=== PATIENT | female | born 1995 | race Hispanic/Latino ===

== ENCOUNTER 2017-12-24 07:24 | Inpatient (IN) | payer MEDICAID ==
[~2017-12-24] VITALS: Ht 170.2 cm; Wt 98.0 kg
[~2017-12-24 07:24] MED LIST: PREN1TAB80 PO
[2017-12-24] MEDS ORDERED: LACTATED RINGERS 1000ML 1,000 ML IV PRN (07:33)
[2017-12-24] MEDS ORDERED: OXYTOCIN 10 USP UNITS/ML 20 UNIT in LACTATED RINGERS 1000ML 1,000 ML IV SCH (07:45)
[2017-12-24] MEDS ORDERED: OXYTOCIN 10 USP UNITS/ML ONE ×2 (08:16→16:05)
[2017-12-24 08:32] LABS: HEMATOCRIT 33.2 % (36-48); MEAN CORPUSCULAR HEMOGLOBIN 31.8 pg (27.0-33.0); MEAN CORPUSCULAR HGB CONC 34.8 g/dL (32.0-36.0); MEAN CORPUSCULAR VOLUME 91.3 fL (79-99); NUCLEATED RED BLOOD CELLS 0.1 % (0.0-0.19); PLATELET COUNT (AUTO) 220 K/uL (130-400); RED BLOOD CELL COUNT(AUTO) 3.64 MIL/uL (4.00-5.50); RED CELL DISTRIBUTION WIDTH 13.4 % (11.0-15.5); WHITE BLOOD COUNT (AUTO) 9.7 K/uL (4.8-10.8)
[2017-12-24 08:33] LABS: APPEARANCE,URINE Cloudy (CLEAR); BILIRUBIN,URINE Negative (NEGATIVE); COLOR,URINE Yellow (YELLOW); GLUCOSE, URINE (UA) Negative (NEGATIVE); KETONES,URINE Negative (NEGATIVE); LEUKOCYTE ESTERASE ,URINE Small (NEGATIVE); NITRATE,URINE Negative (NEGATIVE); OCCULT BLOOD,URINE Negative (NEGATIVE); PROTEIN,URINE Trace (NEGATIVE)
[2017-12-24 08:39] LABS: BACTERIA,URINE Few /HPF (None Seen); SQUAMOUS EPITHELIAL CELL,UR Moderate /HPF (0-2)
[2017-12-24] MEDS ORDERED: LACTATED RINGERS 500 ML 500 ML IV PRN (10:15)
[2017-12-24] MEDS ORDERED: NALOXONE HCL 0.4 MG/1 ML ML IV PRN (10:15)
[2017-12-24] MEDS ORDERED: EPHEDRINE SULFATE 50 MG/ML AMPULE IVP PRN (10:15)
[2017-12-24] MEDS ORDERED: BUTORPHANOL TARTRATE 1 MG/ML IVP SCH (11:30)
[2017-12-24] MEDS ORDERED: BUTORPHANOL TARTRATE 2 MG/ML ONE (11:35)
[2017-12-24] MEDS ORDERED: ACETAMINOPHEN 325 MG TAB PO PRN (14:00)
[2017-12-24] MEDS ORDERED: MEASLES/MUMPS/RUBELLA VACCINE, LIVE 0.5 ML/VIAL SQ PRN (14:00)
[2017-12-24] MEDS ORDERED: LANOLIN 30GM OINTMENT TP PRN (14:00)
[2017-12-24] MEDS ORDERED: DIPH,PERTUSS(ACELL),TET VAC/PF 0.5 ML VIAL IM PRN (14:00)
[2017-12-24] MEDS ORDERED: BENZOCAINE/LANOLIN/ALOE VERA 60 ML AEROSOL TP PRN (14:00)
[2017-12-24] MEDS ORDERED: WITCH HAZEL 1 PAD TP PRN (14:00)
[2017-12-24 15:20] VITALS: BP 113/61
[2017-12-24] MEDS: OXYTOCIN-LR 20 UNITS/1000 ML 1,000 ML IV SCH (16:21)
[2017-12-24] MEDS: IBUPROFEN 600 MG TABLET PO PRN (17:08)
[2017-12-24 19:19] VITALS: BP 103/58
[2017-12-24] MEDS: DOCUSATE SODIUM 100 MG CAP PO SCH (20:46)
[2017-12-24 23:12] VITALS: BP 99/66
[2017-12-25 03:32] VITALS: BP 101/61
[2017-12-25] MEDS: OXYTOCIN-LR 20 UNITS/1000 ML 1,000 ML IV SCH (03:36)
[2017-12-25] MEDS: IBUPROFEN 600 MG TABLET PO PRN ×2 (03:55→11:57)
[2017-12-25 06:40] LABS: HEMATOCRIT 29.7 % (36-48); MEAN CORPUSCULAR HEMOGLOBIN 31.6 pg (27.0-33.0); MEAN CORPUSCULAR HGB CONC 34.9 g/dL (32.0-36.0); MEAN CORPUSCULAR VOLUME 90.7 fL (79-99); PLATELET COUNT (AUTO) 198 K/uL (130-400); RED BLOOD CELL COUNT(AUTO) 3.28 MIL/uL (4.00-5.50); RED CELL DISTRIBUTION WIDTH 13.4 % (11.0-15.5)
[2017-12-25 07:00] VITALS: BP 95/71
[2017-12-25 08:19] LABS: HEPATITIS Bs ANTIGEN SCREEN P Negative (Negative)
[2017-12-25] MEDS: DOCUSATE SODIUM 100 MG CAP PO SCH (08:48)
[2017-12-25 11:00] VITALS: BP 94/59
== END 2017-12-25 14:45 | disposition home or self-care (01) | DRG 560 ==
LOC: LDH 07:24 → WSH 09:02 → LDH 11:42 → WSH 15:20 → EDSTATUS 12-30 07:06
PROVIDERS: ADMIT Obstetrics & Gynecology; ATTEND Obstetrics & Gynecology
PROC: 10E0XZZ Delivery of Products of Conception, External Approach (ICD-10-PCS; principal; 2017-12-24)
PROC: 3E0234Z Introduction of Serum, Toxoid and Vaccine into Muscle, Percutaneous Approach (ICD-10-PCS; 2017-12-24)
PROC: 10907ZC Drainage of Amniotic Fluid, Therapeutic from Products of Conception, Via Natural or Artificial Opening (ICD-10-PCS; 2017-12-24)
DX: O80 Encounter for full-term uncomplicated delivery (principal); Z23 Encounter for immunization; Z37.0 Single live birth; Z3A.39 39 weeks gestation of pregnancy
CPT/HCPCS: 36415; 81001; 85027; 86592; 86850; 86900; 86901; 87340; 90715; A4351; A4606; J0595; J2590; J7120